=== PATIENT | male | born 1975 | race Caucasian/White ===

== ENCOUNTER 2017-04-01 21:11 | Inpatient (IN) | payer OTHER ==
[~2017-04-01] VITALS: Ht 167.6 cm; Wt 122.5 kg
[2017-04-01 21:26] VITALS: BP 151/104
[2017-04-01 21:54] LABS: BASOPHILS # (AUTO) 0.1 K/uL (0.00-0.22); BASOPHILS % (AUTO) 1.1 % (0.0-2.0); EOSINOPHILS # (AUTO) 0.1 K/uL (0-0.4); EOSINOPHILS % (AUTO) 1.1 % (0.0-4.0); HEMATOCRIT 44.8 % (36-52); HEMOGLOBIN 14.9 g/dL (12.0-18.0); LYMPHOCYTES # (AUTO) 1.3 K/uL (2.0-11.5); LYMPHOCYTES % (AUTO) 9.9 % (20.5-51.1); MEAN CORPUSCULAR HEMOGLOBIN 30 pg (27-31); MEAN CORPUSCULAR HGB CONC 33 g/dL (33-37); MEAN CORPUSCULAR VOLUME 91 fL (80-94); MONOCYTES # (AUTO) 0.8 K/uL (0.8-1.0); MONOCYTES % (AUTO) 6.4 % (1.7-9.3); NEUTROPHILS # (AUTO) 10.4 K/uL (1.8-7.7); NEUTROPHILS % (AUTO) 81.5 % (42.2-75.2); PLATELET COUNT (AUTO) 202 K/uL (140-450); RED BLOOD CELL COUNT(AUTO) 4.95 MIL/uL (4.20-6.10); RED CELL DISTRIBUTION WIDTH 11.7 % (11.6-13.7); WHITE BLOOD COUNT (AUTO) 12.7 K/uL (4.8-10.8)
[2017-04-01 22:08] LABS: CARBON DIOXIDE 28.4 mmol/L (21-32); POTASSIUM 3.4 mmol/L (3.5-5.1)
[2017-04-01 22:13] LABS: ALBUMIN 3.9 g/dL (3.4-5.0); TOTAL BILIRUBIN 0.9 mg/dL (0.0-1.0)
--- NOTE | 2017-04-02 00:41 | NUR ---
PATIENT AMBULATED TO ER BED 5.
--- NOTE | 2017-04-02 01:15 | NUR ---
PATIENT BEING EVALUATED BY DR. LANDEROS.
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
[2017-04-02] MEDS ORDERED: NACL 0.9% 1,000 ML IV ONE (01:30)
[2017-04-02] MEDS ORDERED: HYDROmorphone 1 MG/ML AMP IVP ONE (01:30)
[2017-04-02] MEDS: PSYLLIUM 12.2 GM/PKT PO SCH ×2 (01:55→09:00)
[2017-04-02] MEDS ORDERED: ACETAMINOPHEN 325 MG TAB PO PRN (01:55)
[2017-04-02] MEDS ORDERED: NACL 0.9% 1,000 ML IV SCH (01:55)
[2017-04-02] MEDS ORDERED: ONDANSETRON 4 MG/2 ML VIAL IM/IVP PRN (01:55)
[2017-04-02] MEDS ORDERED: HYDROcodone/APAP 7.5/325 MG 1 TAB PO PRN (01:55)
--- NOTE | 2017-04-02 02:21 | NUR ---
Patient will be admitted to care of Dr. Fuentes. Admited to TELE. Will go to room 105-A. Belongings list completed. Report to Areli LOMBARDO.
[2017-04-02] MEDS ORDERED: METF500T PO (02:25)
[2017-04-02 02:34] LABS: FREE T4 (FREE THYROXINE) 1.08 ng/dL (0.76-1.46); MAGNESIUM 1.7 mg/dL (1.8-2.4); PHOSPHORUS 3.5 mg/dL (2.5-4.9); THYROID STIMULATING HORMONE 1.42 uIU/mL (0.34-3.74)
[2017-04-02 02:35] LABS: CHOL/HDL RATIO 3.9 (1-4.5)
--- NOTE | 2017-04-02 02:50 | NUR ---
ADMITTED PATIENT TO THE TELE UNIT. PATIENT RESTING IN BED, AWAKE ALERT ORIENTED X4. NO S/S OF ACUTE DISTRESS NOTED, RESPIRATION EVEN AND UNLABORED, DENIES PAIN AT THIS TIME. IV INTACT AND PATENT. TELE MONITOR IS PLACED ON PATIENT. PLAN OF CARE DISCUSSED, PATIENT VERBALIZED UNDERSTANDING. CALL LIGHT WITHIN REACH, SAFETY MEASURE ENSURED, WILL CONTINUE TO MONITOR.
[2017-04-02 02:55] LABS: PROTHROMBIN TIME 11.2 secs (10.8-13.4)
[2017-04-02] MEDS ORDERED: cefTRIAXone 1,000 MG VIAL ONE (02:56)
[2017-04-02 03:05] VITALS: BP 155/90
--- NOTE | 2017-04-02 03:30 | NUR ---
SCD APPLIED TO BOTH LOWER EXTREMITIES, PATIENT RESTING IN BED, NO S/S OF ACUTE DISTRESS NOTED, RESPIRATION EVEN AND UNLABORED, CALL LIGHT WITHIN REACH, SAFETY MEASURE ENSURED, WILL CONTINUE TO MONITOR.
[2017-04-02 04:10] VITALS: BP 141/77
--- NOTE | 2017-04-02 05:45 | NUR ---
PATIENT IS SLEEPING AT THIS TIME, NO S/S OF ACUTE DISTRESS NOTED, RESPIRATION EVEN AND UNLABORED, CALL LIGHT WITHIN REACH, SAFETY MEASURE ENSURED, WILL CONTINUE TO MONITOR.
--- NOTE | 2017-04-02 06:45 | NUR ---
DR. SCHROEDER IS AWARE THAT POTASSIUM 3.4. DR. SCHROEDER STATED," I WILL PUT ORDER IN."
[2017-04-02] MEDS: MORPHINE SULFATE 2 MG/ML SYR IVP PRN ×2 (06:54→10:19)
[2017-04-02] MEDS ORDERED: MAG SULF 2000 MG/WATER PREMIX 50 ML IV ONE (07:00)
[2017-04-02] MEDS ORDERED: POTASSIUM CHLORIDE 40 MEQ, LIDOCAINE 1% 25 MG in NACL 0.9% 250 ML IV ONE (07:00)
[2017-04-02 07:11] LABS: BASOPHILS # (AUTO) 0.1 K/uL (0.00-0.22); BASOPHILS % (AUTO) 0.9 % (0.0-2.0); EOSINOPHILS # (AUTO) 0.2 K/uL (0-0.4); EOSINOPHILS % (AUTO) 1.5 % (0.0-4.0); HEMATOCRIT 40.2 % (36-52); HEMOGLOBIN 14.1 g/dL (12.0-18.0); LYMPHOCYTES # (AUTO) 1.2 K/uL (2.0-11.5); MEAN CORPUSCULAR HEMOGLOBIN 31 pg (27-31); MEAN CORPUSCULAR HGB CONC 35 g/dL (33-37); MEAN CORPUSCULAR VOLUME 90 fL (80-94); MONOCYTES # (AUTO) 0.8 K/uL (0.8-1.0); MONOCYTES % (AUTO) 7.2 % (1.7-9.3); NEUTROPHILS # (AUTO) 9.3 K/uL (1.8-7.7); NEUTROPHILS % (AUTO) 80.4 % (42.2-75.2); PLATELET COUNT (AUTO) 176 K/uL (140-450); RED BLOOD CELL COUNT(AUTO) 4.49 MIL/uL (4.20-6.10); RED CELL DISTRIBUTION WIDTH 11.6 % (11.6-13.7)
--- NOTE | 2017-04-02 07:30 | NUR ---
RECEIVED REPORT FROM RUGBY LEAGUE FOOTBALLER RN. PATIENT LAYING IN BED, STABLE AT THIS TIME. NO SIGNS AND SYMPTOMS OF ACUTE DISTRESS. DENIES PAIN AT THIS TIME.
--- NOTE | 2017-04-02 07:30 | NUR ---
ENDORSED PLAN OF CARE TO DAY RN. PATIENT IS IN STABLE CONDITION.
[2017-04-02 07:39] LABS: CARBON DIOXIDE 28.7 mmol/L (21-32); CREATININE 0.9 mg/dL (0.7-1.3); POTASSIUM 3.7 mmol/L (3.5-5.1)
[2017-04-02 07:44] LABS: WHITE BLOOD COUNT (AUTO) 11.6 K/uL (4.8-10.8)
--- NOTE | 2017-04-02 07:54 | NUR ---
PATIENT HAS BEEN SCREENED AND CATEGORIZED HIGH RISK. PATIENT WILL BE SEEN WITHIN 1-2 DAYS OF ADMISSION. 04/04/[address]
[2017-04-02 08:00] VITALS: BP 139/89
--- NOTE | 2017-04-02 09:00 | NUR ---
urine specimen collected and sent to lab.
[2017-04-02 09:21] LABS: APPEARANCE,URINE HAZY (CLEAR); BILIRUBIN,URINE NEGATIVE (NEGATIVE); BLOOD, URINE NEGATIVE (NEGATIVE); COLOR,URINE ORANGE (YELLOW); LEUKOCYTE ESTERASE ,URINE NEGATIVE (NEGATIVE); NITRITE, URINE NEGATIVE (NEGATIVE); UGLUCOSE NEGATIVE (NEGATIVE)
--- NOTE | 2017-04-02 10:23 | NUR ---
RECEIVED REPORT FROM STEM TEACHER RN. PATIENT HAS NO SIGNS AND SYMPTOMS OF ACUTE DISTRESS AT THIS TIME. Addendum: 04/02/17 at 1256 by Cori Lemos RN DISREGARD ABOVE NOTES. WRONG TIME. SJ
--- NOTE | 2017-04-02 11:45 | NUR ---
DR MORFIN WAS AT BEDSIDE EXPLAINING ABOUT THE SURGICAL CONSULT. PATIENT WAS UPSET THAT PLANS FOR SURGERY IS FOR NEXT DAY, NOT TODAY. PATIENT BECOME AGITATED AT THIS TIME, PULLED OUT OWN IV, PROCEEDED TO [facility]ATHER BELONGINGS AND GET DRESSED STATING HE WANTS TO LEAVE.
--- NOTE | 2017-04-02 11:50 | NUR ---
PATIENT SIGNED AMA FORM, RISK AND BENEFITS EXPLAINED BY DR MORFIN. PATIENT LEFT WITH FAMILY [facility]ERS.
[2017-04-03] MEDS ORDERED: LACTOBACILLUS RHAMNOSUS GG 1 EACH CAP PO SCH (09:00)
[2017-04-03 10:43] LABS: T4 (THYROXINE) 8.3 ug/dL (4.5-12.0)
--- NOTE | 2017-04-04 13:54 | NUR ---
CM NOTE RETRO REVIEW FAXED TO [facility] / FAX# [phone]
== END 2017-04-02 11:50 | disposition left against medical advice (07) ==
LOC: MED 21:11 → MTU 04-02 01:55
PROVIDERS: ADMIT Family Medicine; ATTEND Family Medicine
DX: K80.62 Calculus of gallbladder and bile duct with acute cholecystitis without obstruction (principal); N17.0 Acute kidney failure with tubular necrosis; Z68.41 Body mass index [BMI] 40.0-44.9, adult; E83.42 Hypomagnesemia; E11.9 Type 2 diabetes mellitus without complications; D72.829 Elevated white blood cell count, unspecified; K85.90 Acute pancreatitis without necrosis or infection, unspecified; E87.6 Hypokalemia; E66.01 Morbid (severe) obesity due to excess calories; Z53.21 Procedure and treatment not carried out due to patient leaving prior to being seen by health care provider; R80.8 Other proteinuria; Z79.84 Long term (current) use of oral hypoglycemic drugs
CPT/HCPCS: 36415; 76700; 80048; 80053; 81003; 82150; 83036; 83690; 83735; 84100; 84436; 84439; 84443; 84479; 85025; 85610; 85730; 86886; 86900; 86901; 87081; 93005; 96374; 99285; J0696; J1170; J2001; J2270; J3475; J3480; J7030; J7060; Q0092